=== PATIENT | female | born 1935 | race Caucasian/White ===

== ENCOUNTER → 2017-11-24 07:56 | Outpatient (CLI) | payer MEDICARE ==
[2013-09-07 11:56] VITALS: BMI 29.4
[~2017-11-24 07:56] MED LIST: ASPIRIN EC81 M1 PO; IBS; KLONOPIN1 MG OR; MONOPRIL10 MG PO; PLAVIX75 MG PO; PROTONIX40 MG PO; SYNTHROID25 MCG; SYNTHROID25 MCG PO; SYNTHROID88 MCG PO; VITAMIN D2000 UNIT PO
== END | disposition home or self-care (01) ==
LOC: D.CT 07:56
DX: R93.8 Abnormal findings on diagnostic imaging of other specified body structures (principal)